=== PATIENT | female | born 1980 | race Hispanic/Latino ===

== ENCOUNTER → 2022-03-11 09:27 | Outpatient (CLI) | payer OTHER, SELFPAY ==
[2022-03-11 19:43] LABS: Add Manual Diff / Slide Review NO; Basophils Absolute Auto 0 /uL (0-100); Basophils Percent Auto 0.8 % (0-2); Eosinophils Absolute Auto 100 /uL (0-450); Eosinophils Percent Auto 1.3 % (2-4); Hematocrit 35.9 % (36-46); Hemoglobin 11.5 g/dL (12.0-16.0); Lymphocytes Absolute Auto 1900 /uL (1100-4500); Lymphocytes Percent Auto 44.2 % (25-40); Mean Corpuscular Hemoglobin 25.4 PG (26-34); Mean Corpuscular Volume 79.6 fL (80-100); Monocytes Absolute Auto 400 /uL (0-900); Monocytes Percent Auto 8.8 % (3-14); Neutrophils Absolute Auto 1900 /uL (1500-7000); Neutrophils Percent Auto 44.9 % (50-75); Platelet Count 291 X10^3/uL (150-400); Red Blood Cell Count 4.51 X10^6/uL (4.0-5.2); Red Cell Distribution Width 20.2 % (11.6-14.8); White Blood Cell Count 4.2 X10^3/uL (4.5-11.0)
[2022-03-11 19:57] LABS: HEMOLYSIS 26 (0-50); Iron 43 ug/dL (37-170)
[2022-03-11 20:03] LABS: Microcytosis 2+; Schistocytes 1+
[2022-03-11 20:05] LABS: Alanine Aminotransferase 18 IU/L (<35); Albumin 4.2 g/dL (3.5-5.0); Albumin Globulin Ratio 1.1 (1.0-2.8); Alkaline Phosphatase 53 U/L (38-126); Aspartate Aminotransferase 30 IU/L (14-36); BUN Creatinine Ratio 17.5 (6-22); Bilirubin Total 0.4 mg/dL (0.2-1.3); Blood Urea Nitrogen 11 mg/dL (7-17); Carbon Dioxide 27 mmol/L (22-32); Chloride 102 mmol/L (98-107); Cholesterol 188 mg/dL (140-199); Estimated Glomerular Filt Rate > 60 mL/min (>60); Glucose 86 mg/dL (70-100); HDL Cholesterol 63 mg/dL (40-60); HEMOLYSIS < 15 (0-50); LDL Cholesterol Calculated 105 mg/dL (<100); Potassium 4.4 mmol/L (3.4-5.1); Sodium 139 mmol/L (137-145); Total Protein 8.2 g/dL (6.3-8.2); Triglycerides 100 mg/dL (35-150)
[2022-03-11 20:06] LABS: Hemoglobin A1C% w Est Avg Glu 5.5 % (4.0-6.0)
[2022-03-11 20:16] LABS: Percent Iron Saturation 8 % (15-50); Total Iron Binding Capacity 506 ug/dL (265-497); Transferrin 377 mg/dL (206-381)
[2022-03-11 20:38] LABS: TSH w/ Reflex to FT4 1.29 uIU/mL (0.47-4.68)
[2022-03-11 20:43] LABS: Ferritin 5 ng/mL (6-137)
== END ==
PROVIDERS: PCP Physician Assistant; Visit Provider Physician Assistant
DX: D64.9 Anemia, unspecified (principal); G43.909 Migraine, unspecified, not intractable, without status migrainosus
CPT/HCPCS: 80053; 80061; 82728; 83036; 83540; 83550; 84443; 85025

== ENCOUNTER → 2022-03-24 12:07 | Outpatient (CLI) | payer OTHER, SELFPAY ==
--- NOTE | 2022-03-24 12:10 | DI.US.S_ITS ---
PROCEDURE: US PELVIC COMPLETE INDICATIONS: HEAVY/FREQUENT MENSTRUATION. HISTORY OF FIBROIDS. TECHNIQUE: Real-time scanning was performed of the pelvic organs, with image documentation. Additional endovaginal scanning was necessary due to incomplete visualization of the adnexal and endometrial structures by transabdominal scanning. COMPARISON: None. FINDINGS: Uterus: Uterus is anteverted and normal in size at 12.0 x 7.3 x 6.8 cm. The myometrium is homogeneous. The endometrium measures 13.1 mm combined thickness. There are multiple uterine fibroids. A mid posterior intramural fibroid measures 4.3 x 6.2 x 3.4 cm. A right anterior intramural fibroid measures 1.9 x 2.0 x 1.7 cm. A mid posterior fibroid in the fundus measures 4.1 x 4.0 x 3.8 cm. Ovaries: The right ovary measures 8.3 x 6.1 x 6.1 cm, with a calculated ovarian volume of 89.6 cc. The left ovary measures 3.7 x 2.2 x 2.6 cm, with a calculated ovarian volume of 11.0 cc. The right ovary has a large simple cyst measuring 7.6 x 5.3 x 6.1 cm. Resistive indices in the arterial inflow to the right ovary are increased, likely due to the large cyst. The left ovary has a simple cyst with a thick wall measuring 3.0 x 2.0 x 2.8 cm. The ovaries have a normal sonographic appearance. Less than 12 follicles can be seen in each ovary. No adnexal masses are seen. Other: No pathologic free abdominal or pelvic fluid. IMPRESSION: 1. Fibroid uterus with multiple fibroids as detailed above. 2. Large simple bilateral ovarian cysts , the largest on the right measuring 7.6 x 5.3 x 6.1 cm. We strive to produce accurate, complete, and clear reports of imaging services. To assist us in improving patient care, this report was composed using standard report templates and voice recognition software. Therefore, it may contain abnormal punctuation, insertions and/or omissions. Occasional wrong-word or sound-alike substitutions may occur. Though we review the report and make efforts to correct it, we do recommend that the report be read carefully in proper context to recognize any text inaccuracies. Dictated by: Josemanuel Garcia M.D. on 03/24/2022 at 16:57 Approved by: Josemanuel Garcia M.D. on 03/24/2022 at 17:03
== END ==
PROVIDERS: PCP Physician Assistant; Referring Provider Physician Assistant; Visit Provider Physician Assistant
DX: D25.1 Intramural leiomyoma of uterus (principal); N83.292 Other ovarian cyst, left side; N83.291 Other ovarian cyst, right side
CPT/HCPCS: 76830; 76856; 93975

== ENCOUNTER → 2022-06-03 15:00 | Outpatient (CLI) | payer OTHER, SELFPAY ==
[2022-06-03 19:23] LABS: Basophils Absolute Auto 0 /uL (0-100); Basophils Percent Auto 0.3 % (0-2); Eosinophils Absolute Auto 100 /uL (0-450); Eosinophils Percent Auto 1.1 % (2-4); Hematocrit 40.4 % (36-46); Hemoglobin 13.3 g/dL (12.0-16.0); Lymphocytes Absolute Auto 2300 /uL (1100-4500); Lymphocytes Percent Auto 37.5 % (25-40); Mean Corpuscular HGB Conc 32.9 % (30-36); Mean Corpuscular Hemoglobin 29.5 PG (26-34); Mean Corpuscular Volume 89.4 fL (80-100); Monocytes Absolute Auto 500 /uL (0-900); Monocytes Percent Auto 8.5 % (3-14); Neutrophils Absolute Auto 3300 /uL (1500-7000); Neutrophils Percent Auto 52.6 % (50-75); Platelet Count 261 X10^3/uL (150-400); Red Blood Cell Count 4.51 X10^6/uL (4.0-5.2); Red Cell Distribution Width 17.2 % (11.6-14.8); White Blood Cell Count 6.2 X10^3/uL (4.5-11.0)
[2022-06-03 19:29] LABS: Add Manual Diff / Slide Review SLIDE REVIEW
[2022-06-03 21:10] LABS: Platelet Morphology Comment 2+ LARGE PLATELETS; RBC Morphology Normal Morphology
== END ==
PROVIDERS: PCP Physician Assistant; Referring Provider Obstetrics & Gynecology; Visit Provider Obstetrics & Gynecology
DX: D64.9 Anemia, unspecified (principal); N83.201 Unspecified ovarian cyst, right side; N83.202 Unspecified ovarian cyst, left side
CPT/HCPCS: 36415; 85025; 86304

== ENCOUNTER 2022-08-14 13:52 | Inpatient (IN) | payer OTHER, SELFPAY ==
[2022-08-11 08:26] VITALS: BMI 25.3
[2022-08-14] VITALS (12 sets, daily range): BP systolic 97–125; BP diastolic 40–75; PULSE 62–75; RESP 10–20; TEMP 36.2–36.7; O2SAT 96–100; BMI 24.3
--- NOTE | 2022-08-14 | PATH_ITS ---
[facility] Accession Number: [id number] No. of containers..02 Tissue . 01 Material submitted: . PART A: ovary - RIGHT OVARIAN CYST PART B: uterus - UTERUS WITH RIGHT AND LEFT FALLOPIAN TUBES . 01 Clinical history: . OPB . 01 Diagnosis: A. 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 No ovarian parenchyma identified. Negative for borderline or malignant features. . B. Uterus with Bilateral Fallopian Tubes, Supracervical Hysterectomy and Bilateral Salpingectomy: Benign leiomyomata, up to 3.9 cm. Secretory endometrium with benign endometrial polyps. Adenomyosis. Right fallopian tube with no evidence of neoplasm. Left fimbriated fallopian tube with no evidence of neoplasm. No evidence of malignancy. [facility] 08/20/2022 1729 Local . 01 Electronically signed: . Kannan Lilly MD, PhD, Pathologist NPI- [id number] . 01 Gross description: . A. Received in formalin labeled with the patient's name, , and right ovarian cyst, and consists of an intact dean, highly vascular, cystic structure weighing 159 grams and measuring 8.0 x 7.2 x 6.3 cm. The external surface is dean and mostly smooth with several small roughened areas consistent with cautery artifact and fimbriae. The external surface is inked blue. The cyst is unilocular and is filled with pale dean, clear serous fluid. The internal surface is smooth with no lesions or excrescences identified, and the buchanan average less than 0.1 cm thick. Insurance Account Executive sections are submitted in cassettes A1-A4. B. Received in formalin labeled with the patient's name, , and an unreadable designation, and consists of an intact uterus (324 grams, 9.1 SI, 9.2 mL, 8.2 APCM), with an attached fallopian tube (5.2 x 0.9 cm), detached fimbriated fallopian tube (4.2 x 1.0 cm), with no cervix or ovaries identified. The lower uterine margin is inked blue. The serosa is dean with diffusely roughened areas consistent with adhesions as well as multiple hemorrhagic areas measuring up to 2.5 cm in greatest dimension. Due to the disrupted lower uterine segment anterior and posterior cannot be determined. A possible small fragment of endocervical canal is identified measuring 0.4 cm in length with dean herringbone mucosa. The endometrial cavity has lush endometrium with two polypoid structures ranging from 1.4 to 1.5 cm in greatest dimension. The cavity measures 3.2 cm from cornu to cornu, and 4.8 cm in length. The endometrium averages 0.3 cm thick. The myometrium is pink-dean and trabecular with multiple fairly well-defined white whorled nodules measuring up to 3.9 cm in greatest dimension located subserosally, intramurally, and submucosally, and grossly distort the endometrial cavity. No hemorrhage or necrosis are grossly identified. The attached fallopian tube has minimal fimbriae, congested serosa, and no cystic structures identified, and sectioning reveals a hemorrhagic stellate lumen. The detached fallopian tube has congested smooth serosa with no cystic structures identified, and sectioning reveals an unremarkable stellate lumen. Insurance Account Executive sections are submitted as follows: B1-B2: Perpendicular lower uterine segment with cervical margin and nodule. B3: Full thickness section with endometrial polyp. B4-B5: Composite full thickness section with endometrial polyp and nodule. B6-B8: Insurance Account Executive nodules. B9: Hemorrhagic roughened serosa. B10: Attached fallopian tube to include entire bisected minimal fimbriae and cross-sections. B11: Detached fallopian tube to include one-half of bisected fimbriae and cross-sections. ([id number]) /YAMILA 08/20/2022 1725 Local . 01 Pathologist provided ICD-10: D25.9, N92.0, D27.9, N84.0 . 01 CPT . 961045, 832259 Performed at: 01 [facility] [address] [place] [address] [address], [place], [place] [id number] MD Yossi Vogel MD Phone: [phone]
[2022-08-14] MEDS: LACTATED RINGERS 1,000 ML 42 ML IV (09:18)
[2022-08-14] MEDS: SCOPOLAMINE 1 PATCH TOP (09:28)
[2022-08-14 09:56] LABS: COVID19 -Nasal RAPID Negative (Negative)
--- NOTE | 2022-08-14 10:18 | PM.PREOP ---
Pre-operative Note COVID-19 Criteria for continued procedure: Non-surgical alternatives not available or appropriate per current SOC Interval Note History & Physical reviewed/Exam performed by Physician: Yes Changes to H&P: No H&P completed within 30 days and has changed as indicated here:: 08/14/22
[2022-08-14] MEDS: ACETAMINOPHEN IV 1,000 MG/100 ML VIAL 400 MG IV (10:19)
--- NOTE | 2022-08-14 10:19 | P.HP_ITS ---
History of Present Illness History of Present Illness Date Patient Seen: 08/14/22 Time Patient Seen: 10:19 Chief complaint: OPB Narrative: Patient is a 42-year-old 1 para 1 with an enlarged fibroid uterus and menorrhagia. She also has bilateral ovarian cysts. She presents for a laparoscopic supracervical hysterectomy with bilateral salpingectomy and removal of ovarian cysts. Patient History Medical History (Updated 06/18/22 @ 12:57 by Karen De Jesus MD) Encounter for general adult medical examination with abnormal findings Encounter for screening for cardiovascular disorders Encounter for screening for diseases of the blood and blood-forming organs and certain disorders involving the immune mechanism Encounter for screening for malignant neoplasm of colon Encounter for screening for other suspected endocrine disorder Family & Social History Social History: household members spouse Tobacco & Substance use: Smoking Status Never smoker alcohol intake never Substance Use Type does not use Meds Home Medications and Allergies Home Medications Medication Instructions Recorded Confirmed Type ascorbic acid (vitamin C) 500 mg 500 mg PO DAILY #90 tabs 06/18/22 08/14/22 Rx tablet Allergies Allergy/AdvReac Type Severity Reaction Status Date / Time No Known Drug Allergies Allergy Verified 08/14/22 08:47 Exam Vital Signs (past 8 hours): - 08/14/22 09:06 Temperature 97.6 F Pulse Rate 66 Respiratory Rate 20 Blood Pressure 107/65 Pulse Oximetry 100 Oxygen Delivery Method Room Air Oxygen Delivery Method Room Air Narrative Exam Narrative: HEENT: No thyromegaly, no anterior cervical or supraclavicular lymphadenopathy. Lungs:Clear to auscultation bilaterally, no wheezes. Cardiovascular: Regular rate and rhythm, no murmurs, rubs, or gallops. Abdomen: No scars. No hepatosplenomegaly. No masses palpable. External genitalia: Normal Vagina: Normal Cervix: Normal Bimanual exam: 12 Week size uterus. Mobile. Extremities: No edema Objective Labs Labs: Laboratory Results - last 24 hr 08/14/22 08:43 SARS-CoV-2 (PCR) Negative Assessment & Plan Assessment & Plan narrative: Assessment: 42-year-old 1 para 1 with an enlarged fibroid uterus and menorrhagia Bilateral ovarian cysts The informed consent was done with an clay mine cutting machine operator at office appointment on June 03, 2022 Time Spent With Patient Time with patient: less than 30 minutes Critical Care time: I spent a total of [] minutes of critical care time on this patient's care today; this time is exclusive of procedural time.
--- NOTE | 2022-08-14 10:22 | SUR.OPER ---
Lithotomy on padded OR bed. [place] Pad Positioner under torso. Head on pillow, arms padded and tucked at sides. Legs secured in padded yellow fins stirrups.
[2022-08-14] MEDS: CEFAZOLIN 2 GM/100 ML PREMIX 100 ML IV (10:44)
[2022-08-14] MEDS: BUPIVACAINE 0.5% W/ EPI (PF) 30 ML VIAL INJ (11:00)
--- NOTE | 2022-08-14 11:04 | SUR.OPER ---
Lithotomy on padded OR bed. [place] Pad Positioner under torso. Head on pillow, arms padded and tucked at sides. Legs secured in padded yellow fins stirrups. Pt positioned per direction and supervision of Dr De Jesus.
[2022-08-14] MEDS: ROPIVACAINE 0.2% PF 2 MG/ML 20ML AMP 20 ML INJ (11:16)
[2022-08-14] MEDS: TRIAMCINOLONE 40 MG/ML VIAL IM (12:41)
[2022-08-14] MEDS: HYDROMORPHONE 2 MG INJ IV (13:11)
--- NOTE | 2022-08-14 13:24 | P.OP_ITS ---
Operative Date/Time/Diagnoses Date of procedure: 08/14/22 Time of procedure: 13:25 Pre-op diagnosis: MENORRHAGIA ENLARGED FIBROID UTERUS Post-op diagnosis: same Procedure & Clinicians Procedure: Procedures Operation Date: 08/14/22 10:15 Actual Procedure Side Surgeon p Open Supracervical Hysterectomy , bilateral salpingectomy, removal of right ovarian cyst Bilateral Karen De Jesus MD Indications: Enlarged fibroid uterus Menorrhagia Surgeon: Karen De Jesus Plastic Worker: Cha Law Anesthesia Type: General and Local Operative Notes Findings: 12 week size multi fibroid uterus Colon to uterine adhesions 8cm right ovarian cyst Omental to anterior abdominal wall adhesions Uterine to posterior cul-de-sac adhesions Right adnexal adhesions Left adnexal adhesions Normal liver and gallbladder Normal appendix Closure Type: primary Specimen(s): left tube, right tube and uterus Applied: catheter (To continuous drainage) Estimated blood loss (mL): 500 Blood products transfused: none Procedure in detail: The patient was taken to the operating room where she was placed in the dorsal supine position. After adequate general endotracheal anesthesia was achieved, she was placed in the dorsal lithotomy position, and prepped and draped in the usual sterile fashion. A time-out was performed. A bivalve speculum was placed into the vagina and the anterior lip of the cervix was grasped with a single- tooth tenaculum. The cervical os was sequentially dilated until the Zumi uterine manipulator could pass easily into the endometrial cavity. The single- tooth tenaculum was removed from the anterior lip of the cervix. The bivalve speculum was removed from the vagina. Attention was then turned to the abdomen where 6 cc of 0.5% Marcaine with epinephrine were injected in the umbilical fold. A 5 mm incision was made. The Veress needle was placed into the peritoneal cavity, and its placement confirmed by aspiration and drop test. The abdomen was insufflated with 3.1 L of CO2. The Veress needle was removed, and a 5 mm trocar was placed without difficulty. Two other incisions were made 4 cm lateral to the midline after 6 cc of 0.5% Marcaine with epinephrine were injected. Two 5 mm trocars were placed under direct visualization. Omental adhesions were taken down using the power seal for better visualization. The probe was used to identify the appendix. This was normal. The liver and gallbladder were normal. Some filmy adhesions were taken down with endo Kimberly and the power seal. There was a large piece of bowel attached to the left side of the fundus of the uterus. There were adhesions in the posterior cul-de-sac which were tethering the uterus to the posterior cul-de-sac. A decision was made to proceed with an open procedure. The trocars were removed from the abdomen. The previous Pfannenstiel incision was excised in an elliptical fashion. This incision was carried down to the fascia. The fascia was nicked in the midline and the incision extended bilaterally with the Costa scissors. The superior aspect of the fascial incision was grasped with the Stuart clamps, elevated, and the underlying rectus muscles dissected off sharply and bluntly. The inferior aspect of this incision was grasped with Stuart clamps, elevated, and the underlying rectus muscles dissected off sharply and bluntly. The rectus muscles were in the midline. The peritoneum was identified grasped between 2 hemostats, and entered sharply with the Metzenbaum scissors. This incision was extended bluntly. An O'Jimmy O'Fernandez retractor was placed into the incision. The bowel was packed away with moist lap sponges. The uterus was grasped with a 4 tooth tenaculum. The bowel was taken down off of the left fundus of the uterus using the Metzenbaum scissors and bluntly. The adhesions in the right adnexa were taken down using the Metzenbaum scissors. The tube was grasped with a Susan. Using the power seal the mesosalpinx was cauterized and cut all the way down to the cornua of the uterus. The utero-ovarian vessels were cauterized and cut with the power seal. The broad ligament and round ligament were cauterized and cut with the power seal. On the left side the tube was grasped with a Susan and all of this was repeated on the patient's left side. The bladder flap was created sharply using the Metzenbaum scissors and a moistened sponge stick was used to take the bladder down off of the lower uterine segment and cervix. The Zumi uterine manipulator was removed from the uterus. Using the Bovie the uterus was amputated from the cervix. The cervical os was extensively cauterized with the Bovie. There was some bleeding noted from the left edge of the cervix. Five simple interrupted sutures with 0 Vicryl were placed at the angles and across the cervix to close the cervix and for hemostasis. The pelvis was copiously irrigated with warm normal saline. There was no bleeding noted. All of the pedicles were examined and were found to be hemostatic. The retractor was removed from the incision. The lap sponges were removed from the abdomen. The peritoneum was closed with 2-0 Vicryl in a running fashion. The fascia was reapproximated using 0 Vicryl in a running fashion. The subcutaneous layer was irrigated with warm normal saline. Five simple interrupted sutures with 3-0 Vicryl were placed in the subcutaneous layer. The skin was closed with 4-0 Monocryl in a subcuticular fashion. 10 mg of Kenalog diluted in 9 cc of saline were injected along the incision for keloid prevention. Steri-Strips, Telfa, and Medipore tape were placed over the incision. Sponge, lap, and instrument counts were correct x2. The patient tolerated the procedure well, and was taken to PACU in stable condition. Complications: none Post-operative Condition: stable Disposition: PACU Plan for aftercare: To acute care after recovery
[2022-08-14] MEDS: OXYCODONE IR 5 MG TABLET PO (13:30)
--- NOTE | 2022-08-14 14:01 | CM.DANOTE ---
Initial DCP Assessment Note Patient is a 42 yo Samoan speaking female, resident of [facility]. Indp at baseline. Anticipate home w/spouse when medically cleared. CM team following closely for any DC needs or concerns that arise. LOLITA Discharge Planning/Care Management CM Discharge Assessment Start: 08/14/22 13:51 Freq: Status: Active Protocol: Document 08/14/22 13:51 LOLITA (Rec: 08/14/22 14:01 LOLITA [id number]) Discharge Planning Assessment Assigned Medical Aides Teacher STEFFANIE Lira DPKHARI/Assigned Designee Name Ricky Escamilla, spouse Contact Information [phone] Advance Directives? No History Provided By Patient,Medical Record Prior Living Arrangements House Household Members spouse Type of transporation used prior to Drives own vehicle admit Independent with ADL's Yes Is patient alert and oriented? Yes Barriers to Discharge No Comment Patient is a 42 yo vincentian speaking female, resident of [facility], POD 0 from Open Supracervical Hysterectomy , bilateral salpingectomy, removal of right ovarian cyst by Dr De Jesus. Anticipate home w/spouse when medically cleared. CM team will plan to follow closely in case any DC needs or concerns arise. Discharge Plan Home Transportation Arrangement Spouse Referrals Initiated None needed Additional Comment CM team will follow for needs
[2022-08-14] MEDS: LACTATED RINGERS 1,000 ML 100 ML IV ×2 (14:10→23:26)
[2022-08-14] MEDS: KETOROLAC 30 MG/ML VIAL IV ×2 (14:52→19:16)
--- NOTE | 2022-08-14 18:48 | PC.NURSE ---
Pt arrived from PACU at 1340 this afternoon. She is lethargic but Ox3 and awakens easily. VSS, afebrile on RA. Slightly soft BP's with SBP 90's-120's. Abdominal laceration sites c/d/i x3 with no drainage.She denies nausea/vomiting. She remains restful this afternoon, without much appetite. She has a gonsalves catheter in place draining adequate amount of Clear, yellow urine. She reports abdominal pain this evening 5/10 to abdomen.but declines wanting pain medication. Noted hypoactive BS+ x4. LS CTA. LR to L hand IV, running at 100 ml/hr.
[2022-08-14] MEDS: OXYCODONE IR 10 MG TABLET PO (19:18)
[2022-08-14] MEDS: DOCUSATE 100 MG CAPSULE 200 MG PO (20:09)
[2022-08-15] MEDS: KETOROLAC 30 MG/ML VIAL IV ×2 (01:53→08:23)
[2022-08-15 04:38] VITALS: BP 95/47; PULSE 66; RESP 18; TEMP 36.6; O2SAT 99
[2022-08-15 05:12] LABS: Add Manual Diff / Slide Review NO; Basophils Absolute Auto 0 /uL (0-100); Basophils Percent Auto 0.2 % (0-2); Eosinophils Absolute Auto 0 /uL (0-450); Hematocrit 30.5 % (36-46); Lymphocytes Absolute Auto 1100 /uL (1100-4500); Lymphocytes Percent Auto 16.5 % (25-40); Mean Corpuscular HGB Conc 32.8 % (30-36); Mean Corpuscular Hemoglobin 29.5 PG (26-34); Mean Corpuscular Volume 89.9 fL (80-100); Monocytes Absolute Auto 700 /uL (0-900); Monocytes Percent Auto 10.5 % (3-14); Neutrophils Absolute Auto 4700 /uL (1500-7000); Neutrophils Percent Auto 72.8 % (50-75); Platelet Count 231 X10^3/uL (150-400); Red Cell Distribution Width 14.9 % (11.6-14.8); White Blood Cell Count 6.4 X10^3/uL (4.5-11.0)
[2022-08-15 07:36] VITALS: BP 93/53; PULSE 60; RESP 16; TEMP 36.4; O2SAT 100
[2022-08-15] MEDS: LACTATED RINGERS 500 ML 1000 ML IV (08:21)
[2022-08-15] MEDS: DOCUSATE 100 MG CAPSULE 200 MG PO ×2 (08:24→21:16)
--- NOTE | 2022-08-15 09:53 | PC.NURSE ---
Addendum entered by Hyun Crystal R.N. 08/15/22 10:02: upon repeat BP check s/p bolus IVF 103/48 HR 78 Original Note: Pt is A&OX3, Low BP this a.m. and MD notified. LR bolus of 500 cc given per orders. Pt denied feeling nauseated or dizzy. She reports pain level is tolerable but wincing with rolling and raising her head up and down in the bed. She is able to tolerate breakfast well this a.m. Per order continued LR running at 100 ml/hr. Pt primarily Kazakh Speaking. son at bedside assisting and supportive. MD arrived to bedside this a.m. discussing plan with patient and results via. Catheter dc'd this a.m. at 0945. Lap site dressings to abdomen c/d/i, no drainage noted to ethan pad. Instructed on splinting with coughing and IS use. Encouraged mobility and sitting in chair today.
[2022-08-15 11:32] VITALS: BP 97/45; PULSE 79; RESP 16; TEMP 36.4; O2SAT 99
[2022-08-15] MEDS: ACETAMINOPHEN 325 MG TABLET 650 MG PO (11:51)
--- NOTE | 2022-08-15 12:50 | PM.PNPO.1 ---
Subjective Subjective Date Patient Seen: 08/15/22 Time Patient Seen: 09:30 Interval history: Postop day # 1 status post open supracervical hysterectomy with bilateral salpingectomy Patient did well overnight. Her pain has been well managed. Her Whitfield catheter is still in. She has tolerated clear liquids and some solids. She has not been out of bed as of yet. Steward/Stewardess Chief Cargo Vessel used. Exam Vital Signs (past 8 hours): - 08/15/22 07:36 08/15/22 11:32 Temperature 97.6 F 97.6 F Pulse Rate 60 79 Respiratory Rate 16 16 Blood Pressure 93/53 L 97/45 L Pulse Oximetry 100 99 Oxygen Flow Rate 0 0 Oxygen Delivery Method Room Air Oxygen Flow Rate 0 Narrative Exam Narrative: Generally: Patient is sitting up in bed, no acute distress Lungs: Clear to auscultation bilaterally Cardiovascular: Regular rate and rhythm Abdomen: Soft and flat. Good bowel sounds. Incision: Laparoscopic incisions clean dry and intact with dressings. The Pfannenstiel incision clean dry and intact with a dressing. Extremities: SCDs in place. Objective Labs 08/15/22 04:30 Labs: Laboratory Results - last 24 hr 08/15/22 04:30 WBC 6.4 RBC 3.40 L Hgb 10.0 L Hct 30.5 L MCV 89.9 MCH 29.5 MCHC 32.8 RDW 14.9 H Plt Count 231 Neut % (Auto) 72.8 Lymph % (Auto) 16.5 L [place]undy % (Auto) 10.5 Eos % (Auto) 0.0 L Baso % (Auto) 0.2 Neut # (Auto) 4700 Lymph # (Auto) 1100 [place]undy # (Auto) 700 Eos # (Auto) 0 Baso # (Auto) 0 PFSH Medical History (Updated 06/18/22 @ 12:57 by Karen De Jesus MD) Encounter for general adult medical examination with abnormal findings Encounter for screening for cardiovascular disorders Encounter for screening for diseases of the blood and blood-forming organs and certain disorders involving the immune mechanism Encounter for screening for malignant neoplasm of colon Encounter for screening for other suspected endocrine disorder Social History household members: spouse Smoking Status: Never smoker alcohol intake: never Assessment & Plan Post-op Postoperative Procedures: Procedures Operation Date: 08/14/22 10:15 Actual Procedure Side Surgeon p Open Supracervical Hysterectomy , bilateral salpingectomy, removal of right ovarian cyst Bilateral Karen De Jesus MD Postoperative day: 1 Postoperative status: doing well Postoperative plan: routine post-op care, ambulate and advance diet Postoperative plan narrative: Discontinue Whitfield catheter Time Spent With Patient Time with patient: 15-24 minutes Quality VTE Deep Vein Thrombosis/Pulmonary Embolism Present on Admission: No
[2022-08-15] MEDS: LACTATED RINGERS 1,000 ML 100 ML IV ×2 (13:48→23:27)
--- NOTE | 2022-08-15 16:22 | PC.NURSE ---
Patient up to chair, given tylenol for comfort and patient fell asleep. She has been up to the bathroom twice and voided both times. Family in room.
[2022-08-15 17:00] VITALS: BP 101/49; PULSE 59; RESP 16; TEMP 36.6; O2SAT 100
[2022-08-15 19:40] VITALS: BP 92/45; PULSE 86; RESP 18; TEMP 36.7; O2SAT 98
[2022-08-15] MEDS: IBUPROFEN 600 MG TABLET PO (21:16)
[2022-08-16 02:00] VITALS: BP 102/40; PULSE 61; RESP 18; TEMP 36.7; O2SAT 98
[2022-08-16 05:00] VITALS: BP 100/50; PULSE 65; RESP 18; TEMP 36.4; O2SAT 99
[2022-08-16] MEDS: IBUPROFEN 600 MG TABLET PO (07:03)
[2022-08-16 07:30] VITALS: BP 98/48; PULSE 54; RESP 16; TEMP 36.5; O2SAT 99
[2022-08-16] MEDS: MAGNESIUM HYDROXIDE 30 ML UDC PO (08:34)
[2022-08-16] MEDS: DOCUSATE 100 MG CAPSULE 200 MG PO (08:34)
[2022-08-16] MEDS: ACETAMINOPHEN 325 MG TABLET 650 MG PO (10:43)
--- NOTE | 2022-08-16 11:04 | CM.DPNOTE ---
DC Note Discharge today w/family and close outpatient f/u recommended, no needs identified from this CM team. Dr De Jesus confirms, no DC needs JW
== END 2022-08-16 11:35 | disposition home or self-care (01) | DRG 743 ==
LOC: OR 08-15 09:37 → AC 08-15 09:37
PROVIDERS: Admitting Provider Obstetrics & Gynecology; PCP Physician Assistant; Referring Provider Obstetrics & Gynecology; Visit Provider Obstetrics & Gynecology
PROC: 0UT94ZL Resection of Uterus, Supracervical, Percutaneous Endoscopic Approach (ICD-10-PCS; principal; 2022-08-14 10:15)
DX: D25.9 Leiomyoma of uterus, unspecified (principal); N92.0 Excessive and frequent menstruation with regular cycle; Z20.822 Contact with and (suspected) exposure to COVID-19
CPT/HCPCS: 36415; 58180; 85025; 87635; C9803; G0378; J0131; J0690; J1100; J1170; J1885; J2250; J2405; J2704; J2795; J3010

== ENCOUNTER → 2023-04-01 08:36 | Outpatient (CLI) | payer OTHER, SELFPAY ==
[2022-08-14 14:10] VITALS: BMI 24.3
[2023-04-01 20:10] LABS: Alanine Aminotransferase 22 IU/L (<35); Albumin 3.8 g/dL (3.5-5.0); Alkaline Phosphatase 51 U/L (38-126); Aspartate Aminotransferase 23 IU/L (14-36); BUN Creatinine Ratio 15.9 (6-22); Bilirubin Total 0.7 mg/dL (0.2-1.3); Blood Urea Nitrogen 10 mg/dL (7-17); Calcium 9.3 mg/dL (8.4-10.2); Carbon Dioxide 28 mmol/L (22-32); Chloride 105 mmol/L (98-107); Cholesterol 168 mg/dL (140-199); Estimated Glomerular Filt Rate > 60 mL/min (>60); Globulin 3.7 g/dL (1.7-4.1); Glucose 86 mg/dL (70-100); HDL Cholesterol 55 mg/dL (40-60); HEMOLYSIS < 15 (0-50); LDL Cholesterol Calculated 101 mg/dL (<100); Potassium 3.8 mmol/L (3.4-5.1); Sodium 139 mmol/L (137-145); Total Protein 7.5 g/dL (6.3-8.2); Triglycerides 61 mg/dL (35-150)
[2023-04-01 20:13] LABS: Add Manual Diff / Slide Review NO; Basophils Absolute Auto 0 /uL (0-100); Basophils Percent Auto 0.4 % (0-2); Eosinophils Absolute Auto 100 /uL (0-450); Eosinophils Percent Auto 1.8 % (2-4); Hematocrit 40.1 % (36-46); Hemoglobin 13.4 g/dL (12.0-16.0); Lymphocytes Absolute Auto 1800 /uL (1100-4500); Lymphocytes Percent Auto 43.6 % (25-40); Mean Corpuscular HGB Conc 33.5 % (30-36); Mean Corpuscular Volume 89.7 fL (80-100); Monocytes Absolute Auto 300 /uL (0-900); Monocytes Percent Auto 7.9 % (3-14); Neutrophils Absolute Auto 1900 /uL (1500-7000); Neutrophils Percent Auto 46.3 % (50-75); Platelet Count 235 X10^3/uL (150-400); Red Blood Cell Count 4.47 X10^6/uL (4.0-5.2); White Blood Cell Count 4.1 X10^3/uL (4.5-11.0)
== END ==
PROVIDERS: PCP Physician Assistant; Visit Provider Physician Assistant
DX: D64.9 Anemia, unspecified (principal); Z13.6 Encounter for screening for cardiovascular disorders
CPT/HCPCS: 80053; 80061; 85025

== ENCOUNTER → 2024-03-28 09:33 | Outpatient (CLI) | payer OTHER, SELFPAY ==
[2022-08-14 14:10] VITALS: BMI 24.3
[2024-03-28 19:15] LABS: Add Manual Diff / Slide Review NO; Basophils Absolute Auto 0 /uL (0-100); Basophils Percent Auto 0.6 % (0-2); Eosinophils Absolute Auto 100 /uL (0-450); Hematocrit 44.8 % (36-46); Lymphocytes Absolute Auto 2300 /uL (1100-4500); Lymphocytes Percent Auto 48.1 % (25-40); Mean Corpuscular HGB Conc 33.5 % (30-36); Mean Corpuscular Volume 89.5 fL (80-100); Monocytes Absolute Auto 300 /uL (0-900); Monocytes Percent Auto 6.4 % (3-14); Neutrophils Absolute Auto 2100 /uL (1500-7000); Neutrophils Percent Auto 43.9 % (50-75); Platelet Count 259 X10^3/uL (150-400); White Blood Cell Count 4.9 X10^3/uL (4.5-11.0)
[2024-03-28 19:30] LABS: Alanine Aminotransferase 19 IU/L (<35); Albumin 4.3 g/dL (3.5-5.0); Albumin Globulin Ratio 1.1 (1.0-2.8); Alkaline Phosphatase 60 U/L (38-126); Aspartate Aminotransferase 24 IU/L (14-36); BUN Creatinine Ratio 13.4 (6-22); Bilirubin Total 0.6 mg/dL (0.2-1.3); Blood Urea Nitrogen 9 mg/dL (7-17); Calcium 9.8 mg/dL (8.4-10.2); Carbon Dioxide 30 mmol/L (22-32); Chloride 104 mmol/L (98-107); Cholesterol 202 mg/dL (140-199); Estimated Glomerular Filt Rate > 60 mL/min (>60); Glucose 87 mg/dL (70-100); HDL Cholesterol 75 mg/dL (40-60); HEMOLYSIS < 15 (0-50); LDL Cholesterol Calculated 113 mg/dL (<100); Sodium 139 mmol/L (137-145); Total Protein 8.3 g/dL (6.3-8.2); Triglycerides 69 mg/dL (35-150)
[2024-03-28 19:59] LABS: TSH w/ Reflex to FT4 0.89 uIU/mL (0.47-4.68)
== END ==
PROVIDERS: PCP Physician Assistant; Visit Provider Physician Assistant
DX: Z13.6 Encounter for screening for cardiovascular disorders (principal); D64.9 Anemia, unspecified; D72.9 Disorder of white blood cells, unspecified; G47.00 Insomnia, unspecified; G43.909 Migraine, unspecified, not intractable, without status migrainosus
CPT/HCPCS: 80053; 80061; 84443; 85025

== ENCOUNTER → 2025-04-05 09:20 | Outpatient (CLI) | payer OTHER, SELFPAY ==
[2024-11-16 12:16] VITALS: BMI 24.3
[2025-04-05 18:51] LABS: Add Manual Diff / Slide Review NO; Hematocrit 42.9 % (36-46); Hemoglobin 14.3 g/dL (12.0-16.0); Lymphocytes Absolute Auto 2000 /uL (1100-4500); Mean Corpuscular HGB Conc 33.4 % (30-36); Mean Corpuscular Hemoglobin 29.9 PG (26-34); Mean Corpuscular Volume 89.5 fL (80-100); Platelet Count 221 X10^3/uL (150-400)
[2025-04-05 19:05] LABS: Alanine Aminotransferase 21 IU/L (<35); Albumin 4.3 g/dL (3.5-5.0); Albumin Globulin Ratio 1.2 (1.0-2.8); Alkaline Phosphatase 52 U/L (38-126); Blood Urea Nitrogen 15 mg/dL (7-17); Calcium 9.6 mg/dL (8.4-10.2); Carbon Dioxide 26 mmol/L (22-32); Chloride 106 mmol/L (98-107); Estimated Glomerular Filt Rate > 60 mL/min (>60); Globulin 3.6 g/dL (1.7-4.1); Glucose 88 mg/dL (70-99); HDL Cholesterol 71 mg/dL (40-60); HEMOLYSIS < 15 (0-50); Potassium 4.5 mmol/L (3.4-5.1); Sodium 137 mmol/L (137-145); Total Protein 7.9 g/dL (6.3-8.2)
[2025-04-05 19:47] LABS: TSH w/ Reflex to FT4 1.14 uIU/mL (0.47-4.68)
[2025-04-05 20:15] LABS: Cholesterol 183 mg/dL (140-199); Triglycerides 66 mg/dL (35-150)
[2025-04-06 20:49] LABS: HIV 1 & 2 Ab/Ag 4th Gen Combo NEGATIVE (NEGATIVE); Hep C Virus Ab w/Reflex Quant NEGATIVE s/c (NEGATIVE)
== END ==
PROVIDERS: PCP Physician Assistant; Visit Provider Physician Assistant
DX: Z11.4 Encounter for screening for human immunodeficiency virus [HIV] (principal); Z11.59 Encounter for screening for other viral diseases; D64.9 Anemia, unspecified; F51.01 Primary insomnia
CPT/HCPCS: 80053; 80061; 84443; 85025; 86803; 87389